=== PATIENT | female | born 1940 ===

== ENCOUNTER 2023-10-04 20:42 | Inpatient (IN) | payer MEDICARE, BC ==
[~2023-10-04] VITALS: Ht 160 cm; Wt 62.6 kg
[2023-10-04 20:30] VITALS: BP 158/79; TEMP 98.1; O2SAT 94
[2023-10-04 21:11] VITALS: O2SAT 94
[2023-10-04] MEDS ORDERED: AMLO10TA4 PO (22:15)
[2023-10-04] MEDS ORDERED: ACET-2030 PO (22:15)
[2023-10-04] MEDS ORDERED: CHOL100062 PO (22:19)
[2023-10-04] MEDS ORDERED: GABA-532 PO (22:26)
[2023-10-04] MEDS ORDERED: IBUP-76 PO (22:28)
[2023-10-04] MEDS ORDERED: LACT1CAP71 PO (22:29)
[2023-10-04] MEDS ORDERED: DENO60DI SQ (22:33)
[2023-10-04] MEDS ORDERED: SERT-438 PO (22:33)
[2023-10-05] MEDS ORDERED: ZOLPIDEM 5 MG TABLET PO PRN
[2023-10-05] MEDS ORDERED: REMEDY ESSENTIAL ZINC PASTE 113 GM TP PRN
[2023-10-05] MEDS ORDERED: MAGNESIUM HYDROXIDE 30 ML LIQUID UDC PO PRN
[2023-10-05] MEDS ORDERED: ACETAMINOPHEN ES 500 MG TABLET- SA PATIENTS-PAIN ONLY PO PRN
[2023-10-05] MEDS ORDERED: ONDANSETRON 4 MG/2 ML VIAL IV PRN
[2023-10-05] MEDS: AMLODIPINE 2.5 MG TABLET PO ONE (00:24)
[2023-10-05] MEDS: ACETAMINOPHEN 325 MG TABLET PO PRN (00:33)
[2023-10-05 02:42] VITALS: BP 160/74; TEMP 98.1; O2SAT 95
[2023-10-05 07:08] LABS: BASOPHILS % (AUTO) 0.5 % (0.0-2.0); EOSINOPHILS # (AUTO) 0.2 K/uL (0.0-0.7); EOSINOPHILS % (AUTO) 1.8 % (0.0-7.0); HEMATOCRIT 37.2 % (31.2-41.9); HEMOGLOBIN 12.2 g/dL (10.9-14.3); LYMPHOCYTES # (AUTO) 1.8 K/uL (0.8-4.8); LYMPHOCYTES % (AUTO) 20.2 % (20.5-51.5); MEAN CORPUSCULAR HEMOGLOBIN 26.7 uug (24.7-32.8); MEAN CORPUSCULAR HGB CONC 33 g/dL (32.3-35.6); MEAN CORPUSCULAR VOLUME 81.3 fL (75.5-95.3); MONOCYTES # (AUTO) 0.7 K/uL (0.1-1.30); MONOCYTES % (AUTO) 7.7 % (0.0-11.0); NEUTROPHILS # (AUTO) 6.1 K/uL (1.8-8.9); NEUTROPHILS % (AUTO) 69.8 % (38.5-71.5); PLATELET COUNT (AUTO) 174 K/uL (179-408); RED BLOOD CELL COUNT(AUTO) 4.58 MIL/uL (3.63-4.92); RED CELL DISTRIBUTION WIDTH 19.3 % (12.3-17.7); WHITE BLOOD COUNT (AUTO) 8.8 K/uL (3.8-11.8)
[2023-10-05 07:18] LABS: DIFFERENTIAL COMMENT 1
[2023-10-05 07:30] LABS: CALCIUM 9.1 mg/dL (8.5-10.1); CREATININE 0.8 mg/dL (0.6-1.3); MAGNESIUM 1.9 mg/dL (1.8-2.4); POTASSIUM 4.2 mmol/L (3.5-5.1)
[2023-10-05] MEDS: SERTRALINE HCL 50 MG TABLET PO SCH (08:54)
[2023-10-05] MEDS: CHOLECALCIFEROL 1,000 UNIT TABLET PO SCH (08:54)
[2023-10-05] MEDS ORDERED: AMLODIPINE 10 MG TABLET PO SCH ×2 (09:00)
[2023-10-05] MEDS: AMLODIPINE 5 MG TABLET PO ONE (09:31)
[2023-10-05 12:20] VITALS: BP 120/51; TEMP 97.5; O2SAT 97
[2023-10-05 16:00] VITALS: BP 135/65; TEMP 98.4; O2SAT 97
[2023-10-05 20:12] VITALS: BP 132/63; TEMP 97.9; O2SAT 99
[2023-10-05] MEDS: GABAPENTIN 100 MG CAPSULE PO SCH (21:01)
[2023-10-06 06:10] VITALS: BP 146/73; TEMP 97.6; O2SAT 97
[2023-10-06] MEDS: AMLODIPINE 10 MG TABLET PO SCH (08:18)
[2023-10-06] MEDS: ACETAMINOPHEN 500 MG TABLET PO PRN (08:41)
[2023-10-06 16:09] VITALS: BP 122/54; TEMP 98.9; O2SAT 97
[2023-10-06] MEDS: ARGININE/GLUTAMINE/CALCIUM BMB 1 EACH POWD.PACK PO SCH (16:40)
[2023-10-06 20:28] VITALS: BP 133/67; TEMP 98.1; O2SAT 98
[2023-10-07 04:33] VITALS: BP 153/79; TEMP 98.2; O2SAT 97
[2023-10-07 08:06] VITALS: BP 144/69; TEMP 97.8; O2SAT 97
[2023-10-07 11:47] VITALS: BP 126/66; TEMP 97.7; O2SAT 95
[2023-10-07 16:52] VITALS: BP 126/72; TEMP 98.5; O2SAT 99
[2023-10-07 20:00] VITALS: BP 154/87; TEMP 97.8; O2SAT 98
[2023-10-08 06:23] VITALS: BP 122/63; TEMP 97.4; O2SAT 93
[2023-10-08 15:36] VITALS: BP 125/65; TEMP 97.7; O2SAT 96
[2023-10-08 20:00] VITALS: BP 139/68; TEMP 97.6; O2SAT 99
[2023-10-08] MEDS: IBUPROFEN 200 MG TABLET PO PRN (22:15)
[2023-10-09 06:23] VITALS: BP 154/49; TEMP 97.6; O2SAT 96
[2023-10-09 08:46] VITALS: BP 116/59; O2SAT 96
[2023-10-09 16:00] VITALS: BP 136/82; TEMP 98; O2SAT 94
[2023-10-09 20:00] VITALS: BP 152/71; TEMP 98; O2SAT 97
[2023-10-10 06:27] VITALS: BP 160/85; TEMP 98; O2SAT 97
[2023-10-10 16:00] VITALS: BP 118/64; TEMP 98.3; O2SAT 97
[2023-10-10 20:30] VITALS: BP 127/58; TEMP 98.3; O2SAT 96
[2023-10-11 06:00] VITALS: BP 135/66; TEMP 98; O2SAT 94
[2023-10-11 12:00] VITALS: BP 108/66; TEMP 98.5; O2SAT 97
[2023-10-11 16:00] VITALS: BP 116/62; TEMP 98.6; O2SAT 95
[2023-10-11 20:00] VITALS: BP 141/69; TEMP 98.3; O2SAT 97
[2023-10-12 06:34] VITALS: BP 123/58; TEMP 98.1; O2SAT 93
[2023-10-12 15:08] VITALS: BP 127/66; TEMP 98.4; O2SAT 97
[2023-10-12 20:18] VITALS: BP 129/62; TEMP 98.4; O2SAT 97
[2023-10-13 04:20] VITALS: BP 134/60; TEMP 98.2; O2SAT 96
[2023-10-13 06:44] LABS: BASOPHILS # (AUTO) 0.1 K/UL (0.0-0.2); BASOPHILS % (AUTO) 0.9 % (0.0-2.0); EOSINOPHILS # (AUTO) 0.2 K/uL (0.0-0.7); EOSINOPHILS % (AUTO) 3.4 % (0.0-7.0); HEMOGLOBIN 11.9 g/dL (10.9-14.3); LYMPHOCYTES # (AUTO) 1.3 K/uL (0.8-4.8); LYMPHOCYTES % (AUTO) 24.5 % (20.5-51.5); MEAN CORPUSCULAR HEMOGLOBIN 26.7 uug (24.7-32.8); MEAN CORPUSCULAR HGB CONC 33 g/dL (32.3-35.6); MEAN CORPUSCULAR VOLUME 81.1 fL (75.5-95.3); MONOCYTES # (AUTO) 0.5 K/uL (0.1-1.30); MONOCYTES % (AUTO) 9.2 % (0.0-11.0); NEUTROPHILS # (AUTO) 3.3 K/uL (1.8-8.9); PLATELET COUNT (AUTO) 165 K/uL (179-408); RED BLOOD CELL COUNT(AUTO) 4.45 MIL/uL (3.63-4.92); RED CELL DISTRIBUTION WIDTH 18.9 % (12.3-17.7); WHITE BLOOD COUNT (AUTO) 5.4 K/uL (3.8-11.8)
[2023-10-13 06:47] LABS: DIFFERENTIAL COMMENT 1
[2023-10-13 06:58] LABS: ALBUMIN 2.9 g/dL (3.4-5.0); BILIRUBIN,TOTAL 0.4 mg/dL (0.2-1.0); CALCIUM 9.5 mg/dL (8.5-10.1); CREATININE 0.7 mg/dL (0.6-1.3); MAGNESIUM 2.1 mg/dL (1.8-2.4); PHOSPHOROUS 3.3 mg/dL (2.5-4.9); POTASSIUM 4.1 mmol/L (3.5-5.1); TOTAL PROTEIN, SERUM 6.3 g/dL (6.4-8.2)
[2023-10-13] MEDS: LIDOCAINE VISCUS 2% 15 ML UDC MM SCH (14:43)
[2023-10-13 17:23] VITALS: BP 129/59; TEMP 98.7; O2SAT 96
[2023-10-13] MEDS ORDERED: LIDOCAINE 2% (GLYDO= UROJET) 10 ML JELLY MM SCH (18:00)
[2023-10-13 19:48] VITALS: BP 141/69; TEMP 98.3; O2SAT 96
[2023-10-14 06:14] VITALS: BP 140/77; TEMP 97.7; O2SAT 95
[2023-10-14 09:00] VITALS: BP 138/68; TEMP 98.1; O2SAT 95
[2023-10-14] MEDS: ENOXAPARIN SODIUM 40 MG/0.4 ML DISP.SYRIN SQ SCH (12:45)
[2023-10-14 16:11] VITALS: BP 133/68; TEMP 98.1; O2SAT 99
[2023-10-14 20:00] VITALS: TEMP 98.1
[2023-10-15] VITALS: TEMP 98.6
[2023-10-15 04:00] VITALS: TEMP 98.5
[2023-10-15 06:00] VITALS: TEMP 98.3
[2023-10-15 15:39] VITALS: BP 124/57; TEMP 98.6; O2SAT 96
[2023-10-15 20:20] VITALS: BP 129/62; TEMP 98.1; O2SAT 97
[2023-10-16 06:20] VITALS: BP 125/68; TEMP 98.1; O2SAT 94
[2023-10-16 11:00] VITALS: BP 121/61; TEMP 97.8; O2SAT 97
[2023-10-16 14:50] VITALS: BP 129/65; TEMP 98.2; O2SAT 92
[2023-10-16 20:00] VITALS: BP 133/70; TEMP 98.4; O2SAT 94
[2023-10-17 06:42] VITALS: BP 130/56; TEMP 98.4; O2SAT 96
[2023-10-17 08:46] VITALS: BP 132/59
== END 2023-10-17 15:30 | DRG 464 ==
PROVIDERS: ADMIT Physical Medicine & Rehabilitation Pain Medicine; ATTEND Physical Medicine & Rehabilitation Pain Medicine
PROC: 0JBP0ZZ Excision of Left Lower Leg Subcutaneous Tissue and Fascia, Open Approach (ICD-10-PCS; principal; 2023-10-08)
PROC: 0JBP0ZZ Excision of Left Lower Leg Subcutaneous Tissue and Fascia, Open Approach (ICD-10-PCS; 2023-10-15)
DX: S22.089D Unspecified fracture of T11-T12 vertebra, subsequent encounter for fracture with routine healing (principal); C34.31 Malignant neoplasm of lower lobe, right bronchus or lung; L97.929 Non-pressure chronic ulcer of unspecified part of left lower leg with unspecified severity; L12.0 Bullous pemphigoid; S32.019D Unspecified fracture of first lumbar vertebra, subsequent encounter for fracture with routine healing; Z91.81 History of falling; R29.6 Repeated falls; W18.30XD Fall on same level, unspecified, subsequent encounter; I10 Essential (primary) hypertension; M81.0 Age-related osteoporosis without current pathological fracture; Z85.3 Personal history of malignant neoplasm of breast; Z88.2 Allergy status to sulfonamides; Z88.8 Allergy status to other drugs, medicaments and biological substances; F32.A Depression, unspecified; G62.9 Polyneuropathy, unspecified; I25.10 Atherosclerotic heart disease of native coronary artery without angina pectoris; K12.0 Recurrent oral aphthae; M48.04 Spinal stenosis, thoracic region; M48.061 Spinal stenosis, lumbar region without neurogenic claudication; M51.36 Other intervertebral disc degeneration, lumbar region; G89.29 Other chronic pain
CPT/HCPCS: 36415; 83735; 84100; 85025; 97535-GO-CO; A6209; A9150; J1650